=== PATIENT | female | born 1955 | race Caucasian/White ===

== ENCOUNTER 2016-08-18 08:05 | Observation (INO) | payer SELFPAY ==
[~2016-08-18 08:05] MED LIST: GOODY'S EX-STR1 EAC1 PO; VISINE TEARS15 ML OPH
[2016-08-18 12:54] LABS: CK-MB 166.8 NG/ML; CKMB INDEX (NOT ORD) 8.4
[2016-08-19 04:45] LABS: HEMATOCRIT 36.6 % (36.0-48.0); HEMOGLOBIN 12.3 g/dL (12.0-16.0)
[2016-08-19 05:17] LABS: BUN (BLOOD UREA NITROGEN) 11 MG/DL (6-23); CALCIUM, SERUM 8.7 MG/DL (8.5-10.4); CHLORIDE, SERUM 107 MMOL/L (96-112); CHOL/HDL RATIO(NOT ORDER) 2.8 (0-5); CHOLESTEROL 158 MG/DL (< 200); CK-MB 61.8 NG/ML; CKMB INDEX (NOT ORD) 4.8; CO2 (CARBON DIOXIDE) 26 MMOL/L (24-34); CPK 1279 U/L (0-200); CREATININE 0.61 MG/DL (0.55-1.02); GFR AFRICAN AMERICAN 113 ML/MIN (>=60); GFR NON AFRICAN AMERICAN 98 ML/MIN (>=60); GLUCOSE, SERUM 86 MG/DL (60-99); HDL CHOLESTEROL 56 MG/DL (> 49); LDL CHOLESTEROL 86 MG/DL (< 130); NON-HDL CHOLESTEROL 102 MG/DL (< 160); POTASSIUM, SERUM 3.9 MMOL/L (3.5-5.3); SODIUM, SERUM 142 MMOL/L (135-148); TRIGLYCERIDE 81 MG/DL (< 150)
[2016-08-19] MEDS ORDERED: LIPITOR40 PO (09:51)
[2016-08-19] MEDS ORDERED: COREG3 PO (09:52)
[2016-08-19] MEDS ORDERED: PLAVIX PO (09:52)
[2016-08-19] MEDS ORDERED: PRIN2.5 PO (09:53)
[2016-08-19] MEDS ORDERED: NITROSTAT0.4 MG SL (09:54)
[2016-08-19] MEDS ORDERED: ASAB PO (10:54)
== END 2016-08-19 11:45 | disposition home or self-care (01) ==
LOC: CORLMH 08:05 → SSU1 08:27
PROVIDERS: Internal Medicine Cardiovascular Disease
PROC: 4A023N7 Measurement of Cardiac Sampling and Pressure, Left Heart, Percutaneous Approach (ICD-10-PCS; principal; 2016-08-18)
PROC: B2111ZZ Fluoroscopy of Multiple Coronary Arteries using Low Osmolar Contrast (ICD-10-PCS; 2016-08-18)
PROC: 027034Z Dilation of Coronary Artery, One Artery with Drug-eluting Intraluminal Device, Percutaneous Approach (ICD-10-PCS; 2016-08-18)
DX: I25.118 Atherosclerotic heart disease of native coronary artery with other forms of angina pectoris (principal); I21.3 ST elevation (STEMI) myocardial infarction of unspecified site; J44.9 Chronic obstructive pulmonary disease, unspecified; F17.210 Nicotine dependence, cigarettes, uncomplicated
CPT/HCPCS: 80048; 80061; 82550; 82553; 84484; 85014; 85018; 93005; 93458; 99152; 99153; A9270-GY; C1725; C1769; C1874; C1887; C1894; C9600; G0378; J0583; J2250; J3010; Q9967